=== PATIENT | male | born 1950 | race Caucasian/White ===

== ENCOUNTER → 2018-06-11 | Outpatient (CLI) | payer BC, OTHER ==
[~2018-06-11] MED LIST: ASP81TEC PO; ASPIRIN; ENLP10T; HCT25T; MULT1CAP27 PO; PRAV80TA2 PO
--- NOTE | 2018-06-11 10:39 | Diagnostic Imaging Report ---
PROCEDURE: MRI left upper extremity without contrast. TECHNIQUE: Multiplanar/multisequence noncontrast enhanced MRI of the left upper extremity was accomplished. INDICATION: Shoulder pain. COMPARISON: There are no prior studies available for comparison. FINDINGS: On the T2 fat-saturated coronal series, the rotator cuff has been completely torn and the supraspinous muscle is retracted to the 10 o'clock position of the humeral head. The humeral head is also higher in position with respect to the glenoid than usually seen and this does suggest that the injury to the rotator cuff is long-standing in nature. There is also hypertrophy of the acromioclavicular joint and this does result in narrowing of the outlet for the torn supraspinatus muscle. The labrum is torn anteriorly. The biceps tendon is thinned but seems to be intact; however, the subscapularis tendon has an irregular appearance and I suspect that it is at least partially torn. There is a small joint effusion present. Within the greater tuberosity of the humerus, there is a well-circumscribed 2.7 x 2.7 cm area of altered signal. I suspect that this is due to either degenerative disease, a benign bony lesion, or a combination of both. If plain films are available, they would be helpful for comparison. If there are no prior plain films, then I would recommend that a plain film be obtained for further study. There is no abnormal signal arising from the osseous structures to suggest bone edema or a fracture. IMPRESSION: 1. The rotator cuff has been completely torn and the supraspinous muscle is retracted to the 10 o'clock position of the humeral head. 2. There is hypertrophy of the acromioclavicular joint and this does result in narrowing of the outlet for the supraspinous muscle. 3. The labrum is torn anteriorly. 4. The indistinct appearance of the subscapularis tendon suggests that the tendon is at least partially torn. 5. The area of altered signal within the greater tuberosity of the humerus is probably due to a benign bony process and/or degenerative disease. Recommendations as above. 6. There is no acute bony abnormality noted. Dictated by: Dictated on workstation # [id number]
== END ==
LOC: RAD 08:22
PROVIDERS: ATTEND Orthopaedic Surgery
DX: S43.012A Anterior subluxation of left humerus, initial encounter (principal); S43.402A Unspecified sprain of left shoulder joint, initial encounter
CPT/HCPCS: 73221

== ENCOUNTER → 2018-08-11 | Outpatient (CLI) | payer OTHER ==
[2018-08-11 12:49] VITALS: BP 133/92
--- NOTE | 2018-08-11 12:49 | Cardiology Stress Test Report ---
Stress Test Report Date of Procedure/Referring: Date of Procedure: Aug 11, 2018 PCP Bran Hu MD Admitting Physician Simone Navarrete MD Baseline Heart Rate: 64 Baseline Blood Pressure: Blood Pressure Systolic: 133 Blood Pressure Diastolic: 92 Baseline EKG: Baseline EKG: normal sinus rhythm Summary/Conclusion: Summary: In summary, the patient started exercising with a baseline heart rate, blood pressure and EKG mentioned above Patient was able to exercise for a total of 5 minutes on Sabino protocol, 7 METs Maximum heart rate 135 Maximum blood pressure 175/74 Stress EKG Minimal nondiagn[address] ST segment changes, frequent PVCs noted during exercise resolved in recovery Recovery EKG Return to baseline Conclusion: 1. Good exercise tolerance for a total of 5 minutes on Sabino protocol, 7 METs, achieving 88 percent of maximum expected heart rate 2. Frequent premature ventricular contractions and ventricular trigeminy noted during exercise resolved during recovery, minimal nondiagnostic ST segment changes 3. Appropriate heart rate response to exercise returned to baseline during recovery BRAN HU MD Aug 11, 2018 12:49
== END ==
LOC: CARD 10:02
PROVIDERS: ATTEND Internal Medicine Cardiovascular Disease
DX: R07.89 Other chest pain (principal); I25.10 Atherosclerotic heart disease of native coronary artery without angina pectoris; I10 Essential (primary) hypertension; E78.2 Mixed hyperlipidemia; I34.0 Nonrheumatic mitral (valve) insufficiency
CPT/HCPCS: 93017

== ENCOUNTER 2021-08-18 09:11 | Day surgery (SDC) | payer BC, OTHER ==
[2021-08-18] VITALS (10 sets, daily range): BP systolic 104–149; BP diastolic 78–94
[~2021-08-18] VITALS: Ht 182.8 cm; Wt 100.2 kg
[2021-08-18] MEDS ORDERED: HEParin (CATH LAB) 2,000 ML IV ONE (09:22)
[2021-08-18] MEDS ORDERED: NS IV 1000 ML 1,000 ML ONE (09:22)
[2021-08-18] MEDS ORDERED: LIDOCAINE 1% INJ 50 ML (XYLOCAINE) VIAL ONE (09:22)
[2021-08-18] MEDS ORDERED: NS IV 1000 ML 1,000 ML IV SCH ×2 (09:30→13:30)
[2021-08-18 09:54] LABS: BILIRUBIN,URINE NEGATIVE (NEGATIVE); CLARITY,URINE CLEAR; COLOR,URINE YELLOW; GLUCOSE, URINE (UA) NEGATIVE (NEGATIVE); KETONES,URINE NEGATIVE (NEGATIVE); LEUKOCYTE ESTERASE ,URINE NEGATIVE (NEGATIVE); NITRITE,URINE NEGATIVE (NEGATIVE); PROTEIN,URINE NEGATIVE (NEGATIVE)
[2021-08-18 09:54] LABS: HEMATOCRIT 48 % (40-54); HEMOGLOBIN 16.1 g/dL (13.3-17.7); MEAN CORPUSCULAR HEMOGLOBIN 31 pg (25-34); MEAN CORPUSCULAR HGB CONC 34 g/dL (32-36); MEAN CORPUSCULAR VOLUME 91 fL (80-99); MEAN PLATELET VOLUME 9.4 fL (9.0-12.2); PLATELET COUNT 235 10^3/uL (130-400); WHITE BLOOD COUNT 5.5 10^3/uL (4.3-11.0)
--- NOTE | 2021-08-18 09:55 | Diagnostic Imaging Report ---
INDICATION: Hypertension and coronary artery disease. Frontal chest obtained at 09:53 a.m. compared to 11/29/2014 FINDINGS: Heart and mediastinal silhouette are normal in appearance. The lungs are clear. There is no pneumothorax or pleural fluid. IMPRESSION: No acute process in the chest. Dictated by: Dictated on workstation # [id number]
[2021-08-18 10:00] LABS: BACTERIA,URINE NEGATIVE /HPF
[2021-08-18 10:06] LABS: PROTHROMBIN TIME PATIENT 13.4 SEC (12.2-14.7)
[2021-08-18] MEDS ORDERED: ALPR1TAB7 PO (10:06)
[2021-08-18] MEDS ORDERED: LISI10TA25 PO (10:06)
[2021-08-18] MEDS ORDERED: TMSL.4C PO ×2 (10:06→10:07)
[2021-08-18] MEDS ORDERED: ZINC30TA2 PO (10:06)
[2021-08-18] MEDS ORDERED: OMG1KC PO (10:06)
[2021-08-18] MEDS ORDERED: CHOL-34 PO (10:06)
[2021-08-18] MEDS ORDERED: PRAV40TA2 PO (10:06)
[2021-08-18] MEDS ORDERED: ASCO-262 PO (10:06)
[2021-08-18 10:15] LABS: ALBUMIN 4.1 GM/DL (3.2-4.5); BILIRUBIN,TOTAL 0.5 MG/DL (0.1-1.0); CALCIUM 9.6 MG/DL (8.5-10.1); CREATININE SERUM 0.88 MG/DL (0.60-1.30); POTASSIUM 4.5 MMOL/L (3.6-5.0); TOTAL PROTEIN 7.2 GM/DL (6.4-8.2)
[2021-08-18] MEDS ORDERED: MIDAZOLAM 5 MG/5 ML (VERSED) VIAL ONE (12:40)
[2021-08-18] MEDS ORDERED: fentaNYL INJ 100 MCG/2 ML AMP ONE (12:40)
--- NOTE | 2021-08-18 13:19 | Conscious Sedation/ASA ---
Conscious Sedation Pre-Proced Time 13:19 ASA Score 3 For ASA 3 and 4: Consider anesthesia and medical clearance. Also, for patients with a history of failed moderate sedation consider anesthesia. Airway Lungs Heart ASA score ASA 1: a normal healthy patient ASA 2: a patient with a mild systemic disease (mid diabetes, controlled hypertension, obesity x ASA 3: a patient with a severe systemic disease that limits activity (angina, COPD, prior Myocardial infarction) ASA 4: a patient with an incapacitating disease that is a constant threat to life (CHF, renal failure) ASA 5: a moribund patient not expected to survive 24 hrs. (ruptured aneurysm) ASA 6: a declared brain- patient whose organs are being harvested. For emergent operations, add the letter E after the classification Mallampati Classification Grade 3 Sedation Plan Analgesia, Amnesia, Plan communicated to team members, Discussed options with patient/fam, Discussed risks with patient/fam The patient is an appropriate candidate to undergo the planned procedure, sedation, and anesthesia. The patient immediately re-assessed prior to indication. BRAN WHITNEY MD Aug 18, 2021 13:19
--- NOTE | 2021-08-18 13:20 | Discharge Inst-Post CATH ---
Discharge Inst-CATH/EP Problems Reviewed?: Yes Post Cardiac Cath/EP D/C Inst Follow Up/Plan Appointment with Dr. Hu's office in 2 to 4 weeks <b>CARDIAC CATH/EP PROCEDURE DISCHARGE INSTRUCTIONS</b> ACTIVITY * Go Home directly and rest. * Limit activity of the leg (or wrist if it was used) for 7 days including aer obics, swimming, jogging, bicycling, etc. * Restrict stair-climbing for 7 days if possible, if not, climb up with your non-cath leg, then bring together on the same step. * Avoid lifting, pushing, pulling or excessive movement of the affected extremi ty for 7 days. * Customary sexual activity may be resumed after 2 days-use caution not to use a position that strains or causes pain to the affected extremity. * No driving for 24 hours. * NO SMOKING. * Avoid straining for bowel movements for 7 days. * Gentle walking on level ground is allowed. * Returning to work will depend on the type of procedure and the results. Your doctor will discuss this with you. CALL YOUR DOCTOR FOR ANY OF THE FOLLOWING: *If bleeding from the puncture site occurs- Apply gentle pressure to site with clean cloth and call your doctor or EMS. * If a knot or lump forms under the skin, increases in size, or causes pain. * If bruising appears to be worsening or moving further down your leg instead of disappearing. * Temperature above 101 F. CARE OF YOUR GROIN INCISION; * Bruising or purple discoloration of the skin near the puncture site is common. * You may shower only, no bathtub bathing for 5 days. Be careful to avoid slipping as your leg may feel stiff. * If a closure device was used on your femoral artery, please see the attached guide regarding care of the device and your leg. * Leave dressing on FOR 24 hours. CARE OF YOUR WRIST INCISION; * Bruising or purple discoloration of the skin near the puncture site is common. * You may shower. * DO NOT submerge wrist. * Leave dressing on FOR 24 hours. BRAN HU MD Aug 18, 2021 13:20
--- NOTE | 2021-08-18 13:25 | Cardiac Cath Report ---
Cardiac Cath Report Physician (s)/Clinical Informaticist (s) Physician BRAN WHITNEY MD Pre-Procedure Diagnosis Pre-Procedure Diagnosis: Coronary artery disease Post-Procedure Note Procedure Start Date: Aug 18, 2021 Name of Procedure: Left heart catheterization Left ventriculogram Findings/Procedure Note PROCEDURE NOTE: 71 years old gentleman with history of frequent PVCs, hypertension, had an abnormal calcium scoring and borderline stress test, scheduled for cardiac catheterization possible PTCA. After explaining the procedure to the patient, all pros and cons were explained, all questions were answered. The patient signed the consent and then he was placed on the cardiac catheterization laboratory. Groin was prepped SL fashion local anesthesia was used. Sheath placed in the right femoral artery. Kelton right and left catheter were used to access the coronary system. Pigtail was used to access the left ventricular cavity. Left ventriculogram was done At the end of the procedure the sheath was removed. Closure device was used FINDINGS: Hemodynamics LV 114/17, end-diastolic pressure of 17 Aorta 104/60 mean of 75 ANATOMY: Left Main is free of obstructive disease Left Anterior Descending is slightly tortuous with mild disease nonobstructive disease Left Circumflex has mild disease nonobstructive disease Ramus intermedius branch is about 2 mm in diameter with 70% stenosis at the ostium. Small artery. Nonobstructive disease Right Coronary Artery tortuous artery with mild disease nonobstructive disease LV Gram is normal size with normal contractility, ejection fraction 60% CONCLUSION: 1. Slightly tortuous coronary system with nonobstructive disease, mild to moderate ostial ramus intermedius branch stenosis, small artery with nonobstructive disease 2. Normal left ventricular end-diastolic pressure DISCUSSION AND RECOMMENDATION: Medical therapy is recommended no intervention is warranted Anesthesia Type: Conscious Sedation Estimated blood loss (mL): 20 ml Contrast Amount: 50 ml Total Radiation Dose: 518 mGy Post-Procedure Diagnosis Post-operative diagnosis: Chest pain Palpitation Frequent PVCs Coronary artery disease BRAN WHITNEY MD Aug 18, 2021 13:25
[2021-08-18] MEDS ORDERED: PATIENT MAY USE OWN MEDS, ALL PO SCH (13:30)
== END 2021-08-18 17:50 ==
LOC: CATH 09:11 → SDC 13:42 → CATH 17:50
PROVIDERS: ATTEND Internal Medicine Cardiovascular Disease
DX: I25.10 Atherosclerotic heart disease of native coronary artery without angina pectoris (principal); I49.3 Ventricular premature depolarization; I10 Essential (primary) hypertension; E78.5 Hyperlipidemia, unspecified; I65.23 Occlusion and stenosis of bilateral carotid arteries; G47.33 Obstructive sleep apnea (adult) (pediatric); Z79.899 Other long term (current) drug therapy
CPT/HCPCS: 71045; 80053; 80061; 81000; 85027; 85610; 85730; 87081; 93005; 93458; C1760; C1894; 36415

== ENCOUNTER 2022-06-25 10:20 | Outpatient (RCR) | payer OTHER ==
[~2022-06-25 10:20] MED LIST changes: +ALPR1TAB7 PO; +ASCO-262 PO; +CHOL-34 PO; +LISI10TA25 PO; +OMG1KC PO; +PRAV40TA2 PO; +TMSL.4C PO; +ZINC30TA2 PO
== END 2022-06-25 13:00 | disposition home or self-care (01) ==
PROVIDERS: ATTEND Orthopaedic Surgery
DX: M17.12 Unilateral primary osteoarthritis, left knee (principal); Z96.651 Presence of right artificial knee joint

== ENCOUNTER 2022-10-18 08:42 | Outpatient (RCR) | payer MEDICARE | END 2022-11-07 | disposition home or self-care (01) | PROVIDERS: ATTEND Orthopaedic Surgery | DX: Z47.1 Aftercare following joint replacement surgery (principal); I10 Essential (primary) hypertension; Z96.652 Presence of left artificial knee joint ==

== ENCOUNTER 2023-02-06 14:41 | Outpatient (CLI) | payer MEDICARE ==
[~2023-02-06] VITALS: Ht 182.9 cm; Wt 90.9 kg
[2023-02-06] MEDS ORDERED: CYAN50009 PO (15:57)
[2023-02-06] MEDS ORDERED: VITA0.4T18 PO (15:57)
[2023-02-06] MEDS ORDERED: MULT-1136 PO (15:57)
== END 2023-02-06 16:09 | disposition home or self-care (01) ==
LOC: PREOP 14:41
PROVIDERS: ATTEND Specialist
DX: Z01.818 Encounter for other preprocedural examination (principal)

== ENCOUNTER 2023-02-15 06:15 | Day surgery (SDC) | payer MEDICARE ==
[~2023-02-15] VITALS: Ht 182.9 cm; Wt 90.9 kg
[~2023-02-15 06:15] MED LIST changes: +CYAN50009 PO; +MULT-1136 PO; +VITA0.4T18 PO
[2023-02-15 06:20] VITALS: BP 122/88
[2023-02-15] MEDS: TETRACAINE 0.5% OPHTH SOLN 4 ML BTL (SINGLE DOSE ONLY) OU PRN ×4 (06:36→06:50)
[2023-02-15] MEDS: PHENYLEPHRINE 10% OPHTH SOLN 5 ML BTL OU SCH ×3 (06:41→06:51)
[2023-02-15] MEDS: TROPICAMIDE 1% OPH SOLN (MYDRIACYL) 15 ML BTL OP SCH ×3 (06:42→06:51)
[2023-02-15] MEDS ORDERED: POVIDONE IODINE OPHTH SOLN 5% 30 ML OP ONE (06:45)
[2023-02-15] MEDS ORDERED: TIMOLOL 0.5% (CATARACTS) 0.3 ML BTL OU PRN (06:45)
[2023-02-15] MEDS ORDERED: MOXIFLOXACIN OPHTH SOLN 5 MG/ML 0.3 ML SYRINGE OP ONE (06:45)
[2023-02-15] MEDS ORDERED: LIDOCAINE PF 1% 2 ML VIAL IR PRN (06:45)
[2023-02-15] MEDS ORDERED: MIDAZOLAM INJ 2 MG/2 ML VIAL ONE (07:14)
--- NOTE | 2023-02-15 07:21 | Ophthalmologist Pre-Op Note ---
Pre-Operative Progress Note H&P Reviewed The H&P was reviewed, patient examined and no changes noted. Date H&P Reviewed: Feb 15, 2023 Time H&P Reviewed: 07:21 Pre-Op Dx Cataract, Right Eye GANESH ZALDIVAR MD Feb 15, 2023 07:21
--- NOTE | 2023-02-15 07:44 | Ophthalmology Operative Report ---
Cataract removal/placement IOL PREOPERATIVE DIAGNOSIS: Cataract Right Eye POSTOPERATIVE DIAGNOSIS: Cataract Right Eye PROCEDURE: Cataract removal and placement of posterior chamber implant, right eye SURGEON: Clarence Zaldivar ANESTHESIA: Topical with sedation COMPLICATIONS: None ESTIMATED BLOOD LOSS: Minimal DESCRIPTION OF PROCEDURE: After proper informed consent was obtained, the patient, a 72 male, was taken to the Operating Room and the right eye was anesthetized with tetracaine. The right eye was then prepped and draped in the usual manner. A wire lid speculum was placed. A paracentesis was made at the left hand position. Preservative free lidocaine was injected into the anterior chamber followed by viscoelastic. A clear corneal incision was made in the temporal position. A capsulorrhexis was preformed and the central nuclear and cortical material were removed. The posterior capsule was polished and Bharat [id number] 21.5 IOL was placed into the capsular bag. The residual viscoelastic was aspirated and balanced saline solution was injected into the anterior chamber. Moxifloxacin was injected into the anterior chamber. The wound was checked and found to be water tight. The patient tolerated the procedure well without complications. CLARENCE ZALDIVAR MD Feb 15, 2023 07:44
[2023-02-15 07:50] VITALS: BP 134/87
--- NOTE | 2023-02-15 12:51 | Anesthesia-General Post-Op ---
MAC Patient Condition Mental Status/LOC: Same as Preop Cardiovascular: Satisfactory Nausea/Vomiting: Absent Respiratory: Satisfactory Pain: Controlled Complications: Absent Post Op Complications Complications None Follow Up Care/Instructions Patient Instructions None needed. Anesthesiology Discharge Order Discharge Order Patient is doing well, no complaints, stable vital signs, no apparent adverse anesthesia problems. No complications reported per nursing. DON BRUCE CRNA Feb 15, 2023 12:51
== END 2023-02-15 07:52 | disposition home or self-care (01) ==
LOC: SDC 06:15
PROVIDERS: ATTEND Specialist
DX: H25.9 Unspecified age-related cataract (principal)
CPT/HCPCS: 66984; V2632

== ENCOUNTER 2023-02-19 09:26 | Outpatient (CLI) | payer MEDICARE | END 2023-02-19 13:11 | disposition home or self-care (01) | LOC: PREOP 09:26 | PROVIDERS: ATTEND Specialist | DX: Z01.818 Encounter for other preprocedural examination (principal) ==